=== PATIENT | male | born 1950 | race Caucasian/White ===

== ENCOUNTER 2021-01-04 08:40 | Outpatient (CLI) | payer MEDICARE, OTHER, SELFPAY ==
--- NOTE | 2021-01-04 08:51 | FL_ITS ---
WS: [id number] DOUBLE CONTRAST UPPER GI EXAMINATION HISTORY: R13.10 - Dysphagia, unspecified COMPARISON: 04/19/2018 FLUOROSCOPY TIME: 2.7 minutes. Patient swallowed the barium mixture without difficulty. There is a moderate stricture in the distal esophagus at the GE junction. The barium went readily through this stricture. The barium tablet did n ot readily exited into the stomach. There is at least a moderate stricture. This is a smooth strictur e with no associated soft tissue mass identified. Stomach is distensible and pliable. Duodenal bulb was normal. No gastroesophageal reflux No hiatal hernia was demonstrated on this exam. FL/FL upper GI w air* [id number] IMPRESSION: 1. Moderate stenosis involving the distal esophagus. Barium tablet was signifi cantly delayed proceeding into the stomach. 2. No significant reflux or hiatal hernia noted on today's examination.
== END 2021-01-04 08:41 | disposition home or self-care (01) ==
PROVIDERS: PCP Family Medicine; Visit Provider Surgery
DX: K22.2 Esophageal obstruction (principal); R13.10 Dysphagia, unspecified
CPT/HCPCS: 74246

== ENCOUNTER → 2021-01-27 09:42 | Outpatient (BNVA) | payer MEDICARE, OTHER, SELFPAY | PROVIDERS: PCP Family Medicine; Visit Provider Surgery | DX: Z20.822 Contact with and (suspected) exposure to COVID-19 (principal); Z11.52 Encounter for screening for COVID-19 | CPT/HCPCS: 87635 ==

== ENCOUNTER 2021-02-01 07:42 | Day surgery (SDC) | payer MEDICARE, OTHER, SELFPAY ==
[2021-01-31 14:56] VITALS: BMI 31.4
[2021-02-01] VITALS (13 sets, daily range): BP systolic 126–162; BP diastolic 66–92; PULSE 58–73; RESP 12–22; TEMP 36.1–36.9; O2SAT 90–99
[2021-02-01] MEDS: heparin 5,000 unit/mL INJ 1 mL 2000 UNIT SUBCUT (08:15)
[2021-02-01] MEDS: sodium chloride 0.9% 1,000 ML 30 ML IV (08:16)
[2021-02-01] MEDS: acetaminophen 1,000 MG/100 ML PIGGYBACK 400 MG IV (08:17)
--- NOTE | 2021-02-01 08:38 | W.PM.OPSUD ---
Surgery/Procedure H&P Update DATE OF PROCEDURE: February 01, 2021 DATE H&P PERFORMED: 01/20/21 H&P UPDATE INFORMATION: I have reviewed H&P completed within last 30 days, I have examined patient prior to procedure and No changes to prior documentation PREOP DIAGNOSIS: Dysphagia and umbilical hernia PRIMARY INDICATION FOR PROCEDURE: The same PLANNED PROCEDURE: Operation Date: 02/01/21 12:40 Proposed Procedures p EGD w/ Poss Dilation W/ Balloon [id number] R13.10 K42.9(Not Applicable) - Rocael To MD s Open Umbilical Hernia Repair w/ Mesh(Not Applicable) - Rocael To MD
[2021-02-01] MEDS: ceFAZolin 3,000 MG in sodium chloride 0.9% (100 ml) 100 ML 200 MG IV (08:51)
[2021-02-01] MEDS: lidocaine 2% INJ 20 mL INJECTION (09:30)
--- NOTE | 2021-02-01 10:18 | ANES.PREANE2 ---
Pre-Anesthetic Assessment Pre-Anesthetic Assessment: Height/Weight: Height 1.8 m Weight 102.058 kg Temp Pulse Resp BP Pulse Ox 97.2 F L 64 18 150/92 95 02/01/21 07:59 02/01/21 07:59 02/01/21 07:59 02/01/21 07:59 02/01/21 07:59 Preop Diagnosis: Dysphagia and umbilical hernia Proposed Procedure: Operation Date: 02/01/21 12:40 Proposed Procedures p EGD w/ Poss Dilation W/ Balloon [id number] R13.10 K42.9(Not Applicable) - Rocael To MD s Open Umbilical Hernia Repair w/ Mesh(Not Applicable) - Rocael To MD Was Beta Rowan taken within 24 hours: Yes Was Clonidine taken within 24 hours: N/A Last intake: Intake Last Liquid Date 01/31/21 Last Liquid Time 19:00 Last Solid Date 01/31/21 Last Solid Time 18:00 Social: Social History: No alcohol and No tobacco Exam: Pre-Anes Outpt Exam: alert, oriented x 3, clear to auscultation bilaterally and regular rate & rhythm Airway: Submandibular: WNL Cervical ROM: WNL Dentition: Full Pulmonary: Pulmonary: Asthma CV/HEM: CV/HEM: HTN Metabolic: Metabolic: Morbid obesity Anesthetic Plan: ASA status: 3 Anesthesia: General Risk of > 500 ml blood loss (7ml/kg in children): No Meds/Allergies Current Medications: Current Medications Generic Name Dose Route Start Last Admin Trade Name Freq PRN Reason Stop Dose Admin Sodium Chloride 1,000 mls @ 30 ml s/hr 02/01/21 08:00 02/01/21 10:17 Sodium Chloride 0.9% IV 02/02/21 07:59 Infused .Q24H SAMARA Infusion PFSH Anesthesia PFSH: Medical History CVA (cerebral vascular accident) GERD (gastroesophageal reflux disease) Hypertension Surgical History History of colonoscopy with polypectomy Social History History of recent travel: No Data Anesthesia Cardiac Studies: No Data to Display
--- NOTE | 2021-02-01 10:25 | P.OP_ITS ---
Operative Report Date of procedure: February 01, 2021 Pre-op Diagnosis: Dysphagia and umbilical hernia Post-op diagnosis: same Post-op Findings: Distal esophagitis with mild stricture formation Procedure Done: 1-Esophagogastroduodenoscopy 2-Open umbilical hernia repair with mesh placement Implants: Polypropylene mesh 5 x 4 cm onlay technique Specimens removed/disposition: Hernia sac and contents Surgeon: Roacel To Slip Cover Cutter: Surgical techs Kelly KEYS and Angela/site damage prevention technician Katherine Circulating nurse Edna Anesthesia: General (PEREZ Burkett) Estimated blood loss (mL): 10 IV fluids (mL): 1,300 Condition: stable Disposition: same day Procedure: Patient was identified in the holding area, was taken to the OR placed first in supine position, SCDs confirmed to be functioning, preoperative antibiotics administered per protocol, and beta amparo protocol was confirmed. Patient was given prophylactic heparin subcutaneous prior to surgery All were in agreement. Patient was intubated by the anesthesia provider on the [facility], patient was placed in left lateral position after a bite block was placed in the mouth, started by introducing the EGD via the mouth under direct visualization, the patient was continuously monitored via library attendant, I was able to assess the esophagus stomach and duodenum till the second part, mild distal esophageal stricture with esophagitis grade 1 up to 39 cm from the incisors when the GE junction located at 40 cm. I was able to traverse the stricture with very mild resistance.Didn't warrant dilation at this point,likely peptic stricture. The remaining of the examination was unremarkable. Except for some mild erythema of the prepyloric region The scope was retrieved under direct visualization and gas was deflated,no biopsies were obtained at that point. Attention now was deviated towards the open umbilical hernia repair where patient was transferred from the [facility] to the OR table. Were all pressure points were padded. Prep and drape of the abdomen was done under the usual sterile technique. I started by infraumbilical skin incision. I was able to identify the incarcerated umbilical hernia, dissection was carried all the way down to the fascia, hernia sac was then opened and the sac was excised in addition to excess omental tissues. Tissues excise sent for permanent pathology. Hemostats were applied onto the omentum and the excess tissues were excised. Transfixing 2-0 silk sutures were applied for hemostasis. Remaining of the omentum was dropped inside the abdominal cavity. I was able to free the overlying fat on top of the fascia, facilitate primary closure. At that point the fascial defect was about 2 inches in diameter, after freeing all the adhesions, under direct visualization I was able to use #1 PDS to repair the defect primarily, as an interrupted [id number] sutures, copious and thorough irrigation of the wound was then achieved and hemostasis ws secured. A piece of polypropylene mesh was decided upon and placed it as an only technique with multiple 2-0 silk [id number] sutures to stabilize it onto the fascia. Following that 2-0 Vicryl was used to deep dermal interrupted stitches,then 4-0 Monocryl was used for subcuticular closure of the skin incision. Lidocaine 2% was used for local infiltration to help postoperative pain.Dermabond was then applied.followed by abdominal binder placement. Counts of sponges,needles and instruments were completed at the end of the procedure Patient tolerated the procedure well and was taken to the recovery area in stable condition I was present for the whole entire procedure
--- NOTE | 2021-02-01 11:05 | SUR.PHASEI ---
1030PT TO PACU AWAKES TO VOICE DENIES PAIN AND NAUSEA, ABD LAARGE SOFT WITH INCISION WITH EXOFIN, D/I PT TEMP 97 WARM BLANKETS X 4 TO PT. 1100 PT DENIES PAIN AND NAUSEA ABD BINDER TO PT PER DR ROMERO ORDER DR AT BEDSIDE TALKEDWITH PT VSS IV PATENT PT ON 2LNC TO KEEP SATS OVER 90% PT ENCOURAGED TO COUGH AND DEEP BREATHE.
[2021-02-01] MEDS: HYDROcodone-acetaminophen 5-325 mg Tablet 1 TAB PO (12:20)
--- NOTE | 2021-02-01 14:42 | ANE.PACU2 ---
Inpatient post-anesthesia follow up: Airway intact: Yes Vital signs: Temperature 98.5 F Pulse Rate 70 Respiratory Rate 18 Blood Pressure 126/72 Pulse Oximetry 93 Oxygen Delivery Me thod Room Air Oxygen Flow Rate 2 Fraction of Inspir ed Oxygen Hydration adequate: Yes Nausea and vomiting: No Pain level: 2 Mental status: Baseline
== END 2021-02-01 12:38 | disposition home or self-care (01) ==
PROVIDERS: PCP Family Medicine; Visit Provider Surgery
PROC: (CPT 43235; principal; 2021-02-01 12:40)
PROC: (CPT 43235; 2021-02-01 12:40)
DX: R13.10 Dysphagia, unspecified (principal); K42.9 Umbilical hernia without obstruction or gangrene; K22.2 Esophageal obstruction; K21.9 Gastro-esophageal reflux disease without esophagitis; K20.80 Other esophagitis without bleeding; I10 Essential (primary) hypertension; Z86.73 Personal history of transient ischemic attack (TIA), and cerebral infarction without residual deficits
CPT/HCPCS: 43235; 49585; 88302; C1781; J0690; J1100; J1644; J2405; J2704; J2710; J3010; J3490; J7030

== ENCOUNTER 2022-11-17 12:44 | Outpatient (CLI) | payer MEDICARE, OTHER, SELFPAY ==
--- NOTE | 2022-11-17 12:55 | USCV_ITS ---
Yifan Navarro Age: 72 Gender: M : 1950 Exam Date: 11/17/2022 13:48 Ordering Phys: Demian Rizo DO Technologist: Exam Location: [facility] [place] Indication: chest pain BP: 150 / 86 HR: 66 Rhythm: Atrial fibrillation Technical Quality: Adequate MEASUREMENTS (Male / Female) Normal Values 2D ECHO LV Diastolic Diameter PLAX 3.9 cm 4.2 - 5.9 / 3.9 - 5.3 cm LV Systolic Diameter PLAX 2.4 cm IVS Diastolic Thickness 1.3 cm 0.6 - 1.0 / 0.6 - 0.9 cm IVS Systolic Thickness 1.6 cm LVPW Diastolic Thickness 1.0 cm 0.6 - 1.0 / 0.6 - 0.9 cm LVPW Systolic Thickness 1.4 cm LVOT Diameter 2.0 cm LV Ejection Fraction 2D Teich 71.0 % LV Ejection Fraction MOD 2C 68.0 % LV Ejection Fraction 2C AL 69.0 % LA Diameter 4.0 cm Aorta at Sinotubular Diameter 3.5 cm IVC Diameter 1.4 cm M-MODE Aortic Annulus Diameter 3.5 cm LA Ao Ratio MM 1.1 MV E Point Septal Separation 0.7 cm DOPPLER AV Peak Velocity 209.0 cm/s LVOT Peak Velocity 98.0 cm/s AV Area Cont Eq vti 1.9 cm squared AV Area Cont Eq pk 1.5 cm squared MV Area PHT 5.0 cm squared Mitral E to A Ratio 0.8 MV E' Velocity 39.0 cm/s Mitral E to MV E' Ratio 7.8 Mitral E to LV E' Lateral Ratio 7.8 Mitral E to LV E' Septal Ratio 7.9 TR Peak Velocity 174.7 cm/s TR Peak Gradient 12.2 mmHg TV Peak E Velocity 100.0 cm/s Right Atrial Pressure 3.0 mmHg Pulmonary Artery Systolic Pressu 15.2 mmHg RV Acceleration Time 0.1 s FINDINGS Left Ventricle Left ventricle is normal in size. LV systolic function is normal with EF of 60 to 65%. No regional wall motion abnormalities are seen. Grade 1 diastolic dysfunction Right Ventricle Normal in size and function Right Atrium Normal in size Left Atrium Dilated Mitral Valve Structurally normal mitral valve. Aortic Valve Aortic valve is thickened.Trace aortic regurgitation. No significant stenosis Tricuspid Valve Mild tricuspid regurgitation. Pulmonary artery systolic pressure is normal. Pulmonic Valve Not well-visualized Pericardium Normal Aorta Normal in size IVC Appears to be normal CONCLUSIONS LV systolic function is normal with EF of 60 to 65%. Grade 1 diastolic dysfunction. Left atrial dilation. Aortic valve is thickened. No significant stenosis. Trace aortic regurgitation. Mild tricuspid regurgitation Compared to prior echocardiogram from 2014, no significant changes are seen Sg Spencer MD (Electronically Signed) Final Date: 04 December 2022 14:00 S
== END 2022-11-17 12:45 | disposition home or self-care (01) ==
PROVIDERS: PCP Electrodiagnostic Medicine; Visit Provider Electrodiagnostic Medicine
DX: R01.1 Cardiac murmur, unspecified (principal); I08.2 Rheumatic disorders of both aortic and tricuspid valves
CPT/HCPCS: 93306

== ENCOUNTER → 2022-12-25 14:28 | Outpatient (BNVA) | payer MEDICARE, OTHER, SELFPAY | PROVIDERS: PCP Electrodiagnostic Medicine; Visit Provider Dermatology | DX: L57.0 Actinic keratosis (principal); L82.0 Inflamed seborrheic keratosis; L81.4 Other melanin hyperpigmentation; L57.8 Other skin changes due to chronic exposure to nonionizing radiation; D18.01 Hemangioma of skin and subcutaneous tissue | CPT/HCPCS: 17000; 17110; 99213 ==

== ENCOUNTER → 2023-12-27 10:32 | Outpatient (BNVA) | payer MEDICARE, OTHER, SELFPAY | PROVIDERS: PCP Electrodiagnostic Medicine; Visit Provider Nurse Practitioner Family | DX: L57.0 Actinic keratosis (principal); L82.0 Inflamed seborrheic keratosis; L81.4 Other melanin hyperpigmentation; D18.01 Hemangioma of skin and subcutaneous tissue; D36.12 Benign neoplasm of peripheral nerves and autonomic nervous system, upper limb, including shoulder; L73.8 Other specified follicular disorders; Z85.828 Personal history of other malignant neoplasm of skin | CPT/HCPCS: 17000; 17110; 99213 ==

== ENCOUNTER 2024-06-10 08:16 | Outpatient (CLI) | payer MEDICARE, OTHER, SELFPAY ==
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
== END 2024-06-10 08:17 | disposition home or self-care (01) ==
PROVIDERS: PCP Electrodiagnostic Medicine; Visit Provider Electrodiagnostic Medicine
DX: R01.1 Cardiac murmur, unspecified (principal); I51.7 Cardiomegaly; I34.81 Nonrheumatic mitral (valve) annulus calcification; I35.8 Other nonrheumatic aortic valve disorders; I37.1 Nonrheumatic pulmonary valve insufficiency
CPT/HCPCS: 93306

== ENCOUNTER 2024-06-28 14:34 | Emergency (ER) | payer MEDICARE, OTHER, SELFPAY ==
[2024-06-28 14:38] VITALS: PULSE 80; RESP 18; TEMP 36.2; O2SAT 94; BMI 29.8
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
--- NOTE | 2024-06-28 14:52 | ECG_ITS ---
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 Measurements Intervals [place] Rate: 82 P: -17 AZ: 168 QRS: -24 QRSD: 98 T: 37 QT: 371 QTc: 435 Interpretive Statements SINUS RHYTHM WITH FREQUENT VENTRICULAR PREMATURE COMPLEXES BORDERLINE LEFT AXIS DEVIATION [QRS AXIS < -20] NONSPECIFIC T-WAVE ABNORMALITY ABNORMAL RHYTHM ECG Compared to ECG 05/20/2018 09:01:53 Ventricular premature complex(es) now present T-wave abnormality now present Electronically Signed On 06-29-2024 21:16:37 CDT by Dileep Covington M.D. [email or web address]
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
[2024-06-28 15:29] LABS: Basophils # 0.1 10^3/uL (0.0-0.1); Basophils % 0.5 %; Eosinophils # 0.1 10^3/uL (0.0-0.8); Eosinophils % 1.3 %; Lymphocytes # 1.6 10^3/uL (0.8-4.8); Lymphocytes % 17.1 %; Mean Corpuscular HGB Conc 33.7 g/dL (30-55); Mean Corpuscular Hemoglobin 29.8 pg (27-33); Mean Corpuscular Volume 88.3 fl (82-101); Mean Platelet Volume 9.1 fL (7.4-10.4); Monocytes # 0.5 10^3/uL (0.2-0.9); Monocytes % 5.9 %; Neutrophils # 6.82 10^3/uL (1.8-7.7); Neutrophils % 74.2 %; Nucleated Red Blood Cells % 0 %; Platelet Count 183 10^3/cmm (157-399); Red Blood Count 5.21 10^6/uL (3.85-5.65); Red Cell Distribution Width 13.5 % (12.1-15.1); White Blood Count 9.19 10^3/uL (3.29-11.43)
[2024-06-28 15:30] VITALS: PULSE 79; RESP 31; O2SAT 96
[2024-06-28 15:50] LABS: Alanine Aminotransferase 35 U/L (0-41); Albumin Level 4.2 g/dL (3.5-5.2); Alkaline Phosphatase 81 U/L (40-130); Aspartate Amino Transferase 32 U/L (0-40); Blood Urea Nitrogen 13 mg/dL (8-23); Calcium 9.1 mg/dL (8.5-10.5); Carbon Dioxide 22 mmol/L (22-29); Chloride 106 mmol/L (98-107); Creatinine Clr Calc Pharmacy 97.5858; Globulin 2.5 g/dL (1.3-4.6); Glucose 111 mg/dL (65-115); Osmolality Calculated 291 mOsm/kg (285-295); Sodium 140 mmol/L (136-145); Total Bilirubin 0.4 mg/dL (0.15-1.2); Total Protein 6.7 g/dL (6.6-8.7)
[2024-06-28 15:51] LABS: Alcohol Level < 10 mg/dL (0-10)
[2024-06-28 16:00] VITALS: BP 159/95; PULSE 77; RESP 14; O2SAT 97
[2024-06-28 16:31] LABS: Add Urine Microscopic? NO
[2024-06-28] MEDS: iohexol 350 mg/mL 500 mL Btl (per mL) IV (16:31)
[2024-06-28 16:32] LABS: Bilirubin Urine Neg (Negative); Blood Urine 2+ (Negative); Glucose Urine UA Norm (Normal); Ketones Urine Negative (Negative); Nitrate Urine Negative (Negative); Protein Urine Neg (Negative); Urine Appearance Clear (CLEAR); Urine Color Yellow (Yellow); Urobilinogen Urine Neg (Negative); pH Urine 5 (5-7)
[2024-06-28 16:33] LABS: Charge for UA Resulting for Rev; Leukocyte Esterase Urine Negative (Negative)
[2024-06-28 16:34] LABS: Bacteria Urine None Seen /hpf; Hyaline Casts Urine 2.05 /lpf; Squamous Epithelial Cell Urine 0-5 /hpf (0-5); WBC Urine 0-5 /hpf (0-5)
[2024-06-28 16:41] LABS: Amphetamines Screen Urine Negative (Negative); Barbiturates Screen Urine Negative (Negative); Benzodiazepines Screen Urine Negative (Negative); Cocaine Screen Urine Negative (Negative); Opiate Screen Urine Negative (Negative); PCP Screen Urine Negative (Negative); THC Screen Urine Negative (Negative)
[2024-06-28 18:24] VITALS: BP 119/76; PULSE 95; O2SAT 96
== END 2024-06-28 18:25 | disposition home or self-care (01) ==
PROVIDERS: Emergency Provider Emergency Medicine; PCP Electrodiagnostic Medicine
DX: S80.12XA Contusion of left lower leg, initial encounter (principal); M79.18 Myalgia, other site; V89.2XXA Person injured in unspecified motor-vehicle accident, traffic, initial encounter; I10 Essential (primary) hypertension; Z86.73 Personal history of transient ischemic attack (TIA), and cerebral infarction without residual deficits
CPT/HCPCS: 36415; 70450; 71045; 71260; 72125; 73590; 74177; 80053; 80306; 80307; 81003; 85025; 86850; 86900; 93005; 99285

== ENCOUNTER 2024-07-16 13:34 | Outpatient (CLI) | payer MEDICARE, OTHER, SELFPAY ==
--- NOTE | 2024-07-16 13:39 | CT_ITS ---
WS: [id number] CTA THORACIC AORTA WITH AND WITHOUT CONTRAST HISTORY: AORTIC ANEURYSM TECHNIQUE: CTA imaging of the thorax is performed with and without contrast. After noncontrast imaging is performed, CT angiogram is performed during injection of Omnipaque 350; 100 mL IV.. Sagittal and coronal reconstructions, sagittal and coronal MIP imaging is submitted. All CT scans at [facility] use at least one of these dose optimization techniques: automated exposure control; mA and/or kV adjustment per patient size (includes targeted exams where dose is matched to clinical indication); or iterative reconstruction. DLP: 792.35 mGy.cm COMPARISON: 06/28/2024 Dilated ascending thoracic aorta. Maximum dilatation is 4.8 cm. Descending aorta at the level of the mayito is normal. Ascending aortic aneurysm returns to normal caliber through the arch. Sinotubular junction 3.2 cm. Sinus of Valsalva 3.9 cm. No aortic dissection or significant plaque. No ulcerated plaque. Normal great vessels. Normal size pulmonary artery. No mediastinal or hilar adenopathy. Heart size is normal. No pericardial or pleural effusion. No RIGHT heart strain. No pulmonary mass or nodule. Benign granuloma superior segment RIGHT lower lobe. Small hiatal hernia. Hepatic steatosis. No adrenal mass. No rib fracture or destructive bone lesions. CT/CT angio chest [id number] IMPRESSION: 1. Ascending aortic aneurysm with a maximum diameter of 4.8 cm. 2. No aortic dissection or atherosclerotic plaque. 3. Normal pulmonary artery. 4. No cardiomegaly. 5. Hepatic steatosis.
[2024-07-16] MEDS: iohexol 350 mg/mL 500 mL Btl (per mL) IV (14:28)
== END 2024-07-16 13:35 | disposition home or self-care (01) ==
PROVIDERS: PCP Electrodiagnostic Medicine; Visit Provider Electrodiagnostic Medicine
DX: I71.9 Aortic aneurysm of unspecified site, without rupture (principal); I71.21 Aneurysm of the ascending aorta, without rupture; K76.0 Fatty (change of) liver, not elsewhere classified; J84.10 Pulmonary fibrosis, unspecified; K44.9 Diaphragmatic hernia without obstruction or gangrene
CPT/HCPCS: 71275

== ENCOUNTER 2024-09-02 06:29 | Outpatient (CLI) | payer MEDICARE, OTHER, SELFPAY ==
--- NOTE | 2024-09-02 06:35 | MR_ITS ---
WS: [id number] MRI LUMBAR SPINE NONCONTRAST HISTORY: CLOSED FX OF 2ND VERTEBRA COMPARISON: CT 06/28/2024, lumbar spine radiograph 08/14/2024 TECHNIQUE: Sagittal and axial multisequence imaging is submitted. Small central disc osteophyte at C5-6 contacting the ventral cervical cord. Very mild anterior wedging of T2, T3 and T4. Mild LEFT curvature lumbar spine. Very slight retrolisthesis of L1 by less than 2 mm. Disc spaces are narrowed and desiccated. Most significant disc base narrowing at L4-5 with chronic endplate changes. 15 % anterior compression fracture of L2 with marrow edema within the vertebral body. Edema does not extend into the posterior elements. Conus terminates normally at L1-2 disc level. L1-L2: Mild disc bulging with ligamentum flavum and facet disease. L2-L3: Mild disc bulging with ligamentum flavum and facet arthritis. Very mild encroachment upon the subarticular recesses. No significant stenosis. L3-L4: Mild annular disc bulge with a central disc protrusion and annular fissure. Disc bulging into the foramina. Marked ligamentum flavum and facet arthritis. Thecal sac is being deformed by central stenosis. Moderate central, bilateral subarticular recess and mild foraminal stenosis. L4-L5: Diffuse osteophytic ridging with mild ligamentum flavum and facet arthritis. Disc osteophyte disease extends into the foramina. Mild ligamentum flavum and facet arthropathy. Combination of findings resulting in mild central, bilateral subarticular recess and foraminal stenosis. L5-S1: Diffuse annular disc bulging with osteophytic ridging. Mild facet joint arthritis. Disc osteophyte disease extending into the foramina resulting in moderate stenosis. There is minimal disc contact on the LEFT S1 nerve root. Paravertebral soft tissues are normal. MR/MR lumbar spine wo con* [id number] IMPRESSION: 1. Acute L2 anterior compression fracture by 15 % without retropulsion. No inv olvement of the posterior elements. In retrospect this fracture was probably ac gagandeep and present on the CT of 06/28/2024 but was not compressed at that time. Mil d progression of anterior buckling. 2. Small central disc protrusion at C5-6 contacts the ventral cervical cord. 3. L3-4: Moderate central, bilateral subarticular recess and mild foraminal st enosis due to disc and osteophyte disease. 4. L4-5: Mild central and bilateral subarticular recess and foraminal stenosis due to disc osteophyte disease. 5. L5-S1: Moderate bilateral foraminal stenosis due to disc osteophyte disease . Disc osteophyte encroachment upon the exiting L5 nerve roots. Minimal contact also on the LEFT S1 nerve root.
== END 2024-09-02 06:30 | disposition home or self-care (01) ==
PROVIDERS: PCP Electrodiagnostic Medicine; Visit Provider Electrodiagnostic Medicine
DX: S32.029G Unspecified fracture of second lumbar vertebra, subsequent encounter for fracture with delayed healing (principal); X58.XXXD Exposure to other specified factors, subsequent encounter; M48.061 Spinal stenosis, lumbar region without neurogenic claudication; M25.78 Osteophyte, vertebrae
CPT/HCPCS: 72148

== ENCOUNTER 2024-09-09 13:52 | Outpatient (CLI) | payer MEDICARE, OTHER, SELFPAY ==
--- NOTE | 2024-09-09 13:59 | XR_ITS ---
WS: [id number] DEXA (DUAL ENERGY X-RAY ABSORPTIOMETRY) Bone mineral density was performed using a [email or web address] machine. HISTORY: OTHER SPECIFIED DISORDERS OF BD STRUCTURES COMPARISON: None available. Lumbar spine BMD (L1-L4): 1.365 g/cm2 T score: 1.2 Z score: 1.3 Total hip BMD: Left: 1.048 g/cm2. T score: -0.4 Z score: 0.3 Right: 1.055 g/cm2. T score: -0.3 Z score: 0.3 10 year probability of a major osteoporotic fracture is 12.3%. XR/XR DEXA axial skeleton* [id number] IMPRESSION: NORMAL BONE MINERAL DENSITY. Male patient.
== END 2024-09-09 13:53 | disposition home or self-care (01) ==
LOC: RAD 13:54
PROVIDERS: PCP Electrodiagnostic Medicine; Visit Provider Electrodiagnostic Medicine
DX: Z13.820 Encounter for screening for osteoporosis (principal); M85.88 Other specified disorders of bone density and structure, other site
CPT/HCPCS: 77080

== ENCOUNTER → 2024-09-25 10:21 | Outpatient (BNVA) | payer MEDICARE, OTHER, SELFPAY | PROVIDERS: PCP Electrodiagnostic Medicine; Visit Provider Internal Medicine Cardiovascular Disease | DX: I71.21 Aneurysm of the ascending aorta, without rupture (principal); I35.9 Nonrheumatic aortic valve disorder, unspecified; I10 Essential (primary) hypertension; R94.31 Abnormal electrocardiogram [ECG] [EKG]; Z86.73 Personal history of transient ischemic attack (TIA), and cerebral infarction without residual deficits; E78.5 Hyperlipidemia, unspecified; Z98.61 Coronary angioplasty status | CPT/HCPCS: 99204 ==

== ENCOUNTER 2024-10-15 06:56 | Outpatient (CLI) | payer MEDICARE, OTHER, SELFPAY ==
--- NOTE | 2024-10-15 | ECG_ITS ---
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 Interpretive Statements Procedure: At the baseline, the blood pressure was 144/79 mmHg with a heart rate of 62 bpm. The electrocardiogram showed normal sinus rhythm, normal axis with normal ST and T's. The Lexiscan was infused over a period of 20 seconds. A total of 0.4 mg of Lexiscan was infused. The stress phase was continued for a total of 5 minutes. Heart rate was at the end of stress phase was 80 bpm and a blood pressure of 129/79 mmHg. The EKG at the peak infusion revealed normal sinus rhythm with no significant ST-T wave changes. Sestamibi was injected 20 seconds after the Lexiscan infusion. Blood pressure at the end of recovery phase was 134/74 mmHg with a heart rate of 79 bpm. Conclusion: 1. Normal EKG response to Lexiscan infusion 2. No Lexiscan induced chest pain or cardiac arrhythmia. 3. Normal blood pressure and heart rate response. 4. Nuclear myocardial perfusion scan pending; see separate report. Electronically Signed On 10-19-2024 12:56:38 CDT by Yehuda Guerrero M.D. [email or web address]
--- NOTE | 2024-10-15 07:33 | NMCV_ITS ---
NM thania perf SPECT r/s* [id number] Yifan Navarro Age: 74 Gender: M : 1950 Exam Date: 10/15/2024 07:59 Ordering Phys: Dileep Covington MD ([email or web address]) Technologist: CRISTINA Young Exam Location: [facility] Indications: cp STRESS TEST [facility] IMAGE PROTOCOL Rest/Stress 1 Lexiscan Day Radiopharmaceutical Dose (mCi) Administration Site Administered by Rest: Tc-99m 10.7 IV Tamia Wang MANAGER BRAND Sestamibi Stress:Tc-99m 33 IV Tamia Wang, MANAGER BRAND Sestamibi Rest: 15-Oct-2024 60 Discovery 630 Stress: 15-Oct-2024 30 Discovery 630 0.4mg Lexiscan. Images obtained in supine and prone position. SPECT RESULTS Technical Quality: Good Raw Data Analysis: Normal Image Corrections: No attenuation or motion correction applied Summed Stress Score: 0 Summed Rest Score: 1 Summed Difference Score: 0 PERFUSION FINDINGS SPECT images demonstrate homogeneous tracer distribution throughout the myocardium. FUNCTIONAL RESULTS (calculated via Gated SPECT) Stress Image LV EF (%): 74 Stress EDV (mL):102 TID: 1.09 Stress ESV (mL):27 FUNCTIONAL FINDINGS: There is normal left ventricular systolic function. IMPRESSIONS Myocardial perfusion imaging is normal. Normal left ventricular systolic function, EF 74%. Yehuda Guerrero MD, FACC (Electronically Signed) Final Date: 15 October 2024 22:34 S
[2024-10-15 07:34] VITALS: BMI 27.6
[2024-10-15 09:04] VITALS: BP 129/79; PULSE 86
== END 2024-10-15 06:57 | disposition home or self-care (01) ==
LOC: CDL 06:58
PROVIDERS: PCP Electrodiagnostic Medicine; Visit Provider Internal Medicine Cardiovascular Disease
DX: R94.31 Abnormal electrocardiogram [ECG] [EKG] (principal)
CPT/HCPCS: 36415; 78452; 93017; 96374; A9500; J2785

== ENCOUNTER → 2024-12-23 14:53 | Outpatient (BNVA) | payer MEDICARE, OTHER, SELFPAY | PROVIDERS: PCP Electrodiagnostic Medicine; Visit Provider Nurse Practitioner Family | DX: R94.31 Abnormal electrocardiogram [ECG] [EKG] (principal) | CPT/HCPCS: 93005; 99214 ==

== ENCOUNTER → 2024-12-26 09:25 | Outpatient (BNVA) | payer MEDICARE, OTHER, SELFPAY | PROVIDERS: PCP Electrodiagnostic Medicine; Visit Provider Nurse Practitioner Family | DX: L73.8 Other specified follicular disorders (principal); D36.12 Benign neoplasm of peripheral nerves and autonomic nervous system, upper limb, including shoulder; D18.01 Hemangioma of skin and subcutaneous tissue; L81.4 Other melanin hyperpigmentation; L57.8 Other skin changes due to chronic exposure to nonionizing radiation; L82.1 Other seborrheic keratosis; X32.XXXA Exposure to sunlight, initial encounter; Z08 Encounter for follow-up examination after completed treatment for malignant neoplasm; Z85.828 Personal history of other malignant neoplasm of skin | CPT/HCPCS: 99213 ==

== ENCOUNTER 2025-02-09 20:14 | Outpatient (CLI) | payer MEDICARE, OTHER, SELFPAY | END 2025-02-09 20:15 | disposition home or self-care (01) | LOC: SLEEP 20:17 | PROVIDERS: PCP Electrodiagnostic Medicine; Referring Provider Electrodiagnostic Medicine; Visit Provider Internal Medicine Pulmonary Disease | DX: G47.33 Obstructive sleep apnea (adult) (pediatric) (principal) | CPT/HCPCS: 95810 ==